=== PATIENT | female | born 1995 | race African-American/Black ===

== ENCOUNTER 2021-09-12 18:21 | Emergency (ER) | payer OTHER ==
[2021-09-12] MEDS ORDERED: diphenhydrAMINE 50 MG/ML VIAL ONE (21:20)
[2021-09-12] MEDS ORDERED: Ketorolac Tromethamine 30 MG/ML VIAL ONE (21:21)
[2021-09-12] MEDS ORDERED: Metoclopramide HCl 10 MG/2 ML VIAL ONE (21:21)
== END 2021-09-12 22:02 | disposition home or self-care (01) ==
LOC: CSHERS 18:21
DX: S06.0X1A Concussion with loss of consciousness of 30 minutes or less, initial encounter (principal); W22.8XXA Striking against or struck by other objects, initial encounter; W18.30XA Fall on same level, unspecified, initial encounter
CPT/HCPCS: 70450; 96372; J1200; J1885; J2765

== ENCOUNTER 2022-03-20 15:07 | Emergency (ER) | payer OTHER ==
[2022-03-20] MEDS ORDERED: predniSONE 20 MG TAB ONE (16:04)
== END 2022-03-20 16:11 | disposition home or self-care (01) ==
LOC: CSHERS 15:07
DX: M25.571 Pain in right ankle and joints of right foot (principal)
CPT/HCPCS: J7512

== ENCOUNTER 2023-02-10 18:10 | Emergency (ER) | payer OTHER, SELFPAY ==
[2023-02-10] MEDS ORDERED: Lidocaine 2% MPF 10 ML AMP (For Epidural Use) ONE (19:23)
[2023-02-10] MEDS ORDERED: Ketorolac Tromethamine 30 MG/ML VIAL ONE (19:30)
== END 2023-02-10 20:10 | disposition home or self-care (01) ==
LOC: CSHERS 18:10
DX: S91.205A Unspecified open wound of left lesser toe(s) with damage to nail, initial encounter (principal); W22.8XXA Striking against or struck by other objects, initial encounter
CPT/HCPCS: 11750; 96372; J1885

== ENCOUNTER 2023-09-09 13:12 | Emergency (ER) | payer SELFPAY ==
[2023-09-09] MEDS ORDERED: Dexamethasone 10 MG/ML VIAL ONE (14:00)
== END 2023-09-09 14:08 | disposition home or self-care (01) ==
LOC: CSHERS 13:12
DX: J02.0 Streptococcal pharyngitis (principal)
CPT/HCPCS: 87430; 99283; J1100